=== PATIENT | female | born 1965 | race Caucasian/White ===

== ENCOUNTER 2016-10-27 11:38 | Emergency (ER) | payer BC ==
[2016-10-27] MEDS ORDERED: SILVADENE ONE (11:41)
[2016-10-27] MEDS ORDERED: NS 1000 ML 1,000 ML ONE ×4 (11:41→14:00)
[2016-10-27] MEDS ORDERED: DILAUDID INJ ONE (11:41)
[2016-10-27] MEDS ORDERED: MORPHINE SULFATE INJ 4 MG ONE ×2 (11:42→12:29)
[2016-10-27] MEDS ORDERED: MORPHINE SULFATE INJ 4 MG IVP ONE ×2 (11:55→12:35)
[2016-10-27 11:56] VITALS: BMI 23.5
[2016-10-27] MEDS ORDERED: ADACEL TDaP IM ONE ×2 (11:58→11:59)
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
[2016-10-27] MEDS ORDERED: NS 1000 ML 1,000 ML IV ONE ×2 (12:57→12:58)
[2016-10-27] MEDS ORDERED: NS IRRIGATION 1000 ML 1,000 ML ONE (13:32)
[2016-10-27 13:55] VITALS: BP 99/57
== END 2016-10-27 13:55 | disposition short-term general hospital (02) ==
LOC: ER 11:38
PROC: 2W29X4Z Dressing of Left Upper Extremity using Bandage (ICD-10-PCS; principal; 2016-10-27)
DX: T20.16XA Burn of first degree of forehead and cheek, initial encounter (principal); T20.10XA Burn of first degree of head, face, and neck, unspecified site, initial encounter; T24.109A Burn of first degree of unspecified site of unspecified lower limb, except ankle and foot, initial encounter; T20.26XA Burn of second degree of forehead and cheek, initial encounter; T20.29XA Burn of second degree of multiple sites of head, face, and neck, initial encounter; T24.239A Burn of second degree of unspecified lower leg, initial encounter
CPT/HCPCS: 16020; 90471; 96365; 96367; 96374; 96375; 99283; 99284; 99285; A4222; J1170; J2270